=== PATIENT | female | born 1960 | race Caucasian/White ===

== ENCOUNTER 2023-03-06 15:58 | Emergency (ER) | payer OTHER, MEDICAID | END 2023-03-06 16:50 | disposition home or self-care (01) | LOC: JD.ED 15:58 → MERGE 15:58 → JD.ED 16:50 | DX: Z76.0 Encounter for issue of repeat prescription (principal); Z88.5 Allergy status to narcotic agent; Z79.899 Other long term (current) drug therapy | CPT/HCPCS: 99281 ==

== ENCOUNTER 2023-11-07 16:31 | Emergency (ER) | payer OTHER, MEDICAID ==
[2023-11-07] MEDS: Levothyroxine 100 MCG Tab PO STA (17:53)
[2023-11-07] MEDS: traMADol 50 MG Tab PO ONE (17:53)
[2023-11-07] MEDS: Gabapentin 300 MG Cap PO ONE (17:53)
[2023-11-07] MEDS: ClonazePAM 0.5 MG Tab PO ONE (17:54)
[2023-11-07] MEDS: Baclofen 10 MG Tab PO ONE (17:54)
== END 2023-11-07 17:53 | disposition home or self-care (01) ==
LOC: JD.ED 16:31
DX: Z76.0 Encounter for issue of repeat prescription (principal); Z79.899 Other long term (current) drug therapy; Z79.890 Hormone replacement therapy; Z79.891 Long term (current) use of opiate analgesic
CPT/HCPCS: 99281; A9270